=== PATIENT | female | born 1970 | race Caucasian/White ===

== ENCOUNTER 2022-02-01 20:54 | Emergency (ER) | payer OTHER ==
[~2022-02-01] VITALS: Ht 167.6 cm; Wt 75.7 kg
[2022-02-02] MEDS ORDERED: ZOFRAN8 MG PO (04:02)
[2022-02-02] MEDS ORDERED: DOLOGESIC-DF 51 EACH PO (04:02)
[2022-02-02] MEDS ORDERED: PEPCID40 MG PO (04:02)
== END 2022-02-02 04:09 ==
LOC: ER 20:54
DX: J10.1 Influenza due to other identified influenza virus with other respiratory manifestations (principal); E03.9 Hypothyroidism, unspecified; Z20.822 Contact with and (suspected) exposure to COVID-19